=== PATIENT | female | born 1985 | race Caucasian/White ===

== ENCOUNTER 2024-05-20 17:55 | Inpatient (IN) ==
[2024-05-20] MEDS ORDERED: Lidocaine 1% VIAL 10 MG/ML 30 ML VIAL INJ PRN (19:34)
[2024-05-20] MEDS: Lactated Ringers 1000 ml BAG 1,000 ML IV ONE (19:58)
[2024-05-20] MEDS: Dinoprostone 10 MG VAG.SUPP VAGINAL ONE (20:10)
[2024-05-20 20:11] LABS: ABS Basophils 0.1 10^3/uL (0.0-0.1); ABS Eosinophils 0.1 10^3/uL (0.0-0.5); ABS Lymphocytes 2.3 10^3/uL (1.0-4.8); ABS Monocytes 0.8 10^3/uL (0.0-0.9); ABS Neutrophils 7.5 10^3/uL (1.5-7.6); ABS Nucleated RBC 0.01 10^3/ul; Hematocrit 38.6 % (35-45); Hemoglobin 13.4 g/dL (11.5-14.3); Lymphocyte % 21.7 %; Mean Corpuscular Hemoglobin 32.5 pg (27-33); Mean Corpuscular Hgb Conc 34.7 g/dL (31-36); Mean Corpuscular Volume 93.4 fL (80-97); Mean Platelet Volume 7.7 fL (7.5-11.2); Nucleated Red Blood Cells % 0.1 %/100WBC (0.0-0.8); Platelet Count 252 10^3/uL (150-450); Red Blood Count 4.13 10^6/uL (3.63-4.92); Red Cell Distribution Width 13.2 % (12-17); White Blood Count 10.8 10^3/uL (3.8-11.8)
[2024-05-20 20:31] LABS: Urine Benzodiazepine Screen None Detected (None Detect); Urine Cannabinoids Screen None Detected (None Detect); Urine Opiates Screen None Detected (None Detect)
[2024-05-21] MEDS: Penicillin G Potassium IV 5,000,000 UNITS in NS 0.9% 100 ml BAG 100 ML IVPB ONE (00:33)
[2024-05-21] MEDS ORDERED: Prochlorperazine 5 mg/ml 2 ml VIAL (10 mg) IV PRN (01:47)
[2024-05-21] MEDS: Lactated Ringers 1000 ml BAG 1,000 ML IV SCH ×3 (02:01→21:51)
[2024-05-21] MEDS: Nalbuphine 10 MG/ML 1 ML VIAL IV PRN (02:01)
[2024-05-21] MEDS: OBEPIDURAL (200 ML) 200 ML EPIDURAL ONE (04:06)
[2024-05-21] MEDS ORDERED: fentaNYL 100 mcg/2 ml 50 MCG/ML VIAL IV PRN (04:13)
[2024-05-21] MEDS ORDERED: Metoclopramide 5 MG/ML VIAL (10 mg) IV PRN (04:13)
[2024-05-21] MEDS ORDERED: Ondansetron 4 mg VIAL 2 MG/ML 2 ml VIAL IV PRN ×2 (04:13→17:28)
[2024-05-21] MEDS ORDERED: Naloxone 0.4 mg VIAL 0.4 mg/ml 1 ml VIAL IV PRN (04:13)
[2024-05-21] MEDS: Penicillin G Potassium IV 3,000,000 UNITS in NS 0.9% 100 ml BAG 100 ML IVPB SCH (04:23)
[2024-05-21] MEDS: Lidocaine 1.5% EPI 1:200,000 30 ML SDV ONE (04:48)
[2024-05-21] MEDS ORDERED: NS 0.45% 1000 ml BAG 1,000 ML IV SCH (05:00)
[2024-05-21 05:34] LABS: Urine Appearance Clear; Urine Bacteria Absent /HPF (Absent); Urine Bilirubin Negative (Negative); Urine Blood 2+ (Negative); Urine Color Colorless; Urine Glucose Negative (Negative); Urine Ketones Negative (Negative); Urine Nitrite Negative (Negative); Urine Protein Negative (Negative); Urine Red Blood Cell 3+(>10/hpf) /HPF (0-Trace); Urine Specific Gravity 1.012 (1.002-1.030); Urine Urobilinogen Negative (Negative); Urine White Blood Cell Trace(0-5/hpf) /HPF (0-Trace)
[2024-05-21] MEDS ORDERED: Phenylephrine 40 mcg/mL 10mL (400mcg) SYRINGE IV PUSH PRN ×2 (07:33)
[2024-05-21] MEDS: Oxytocin in LR 20,000 MILLI.UNIT/1,000 ML BAG IV SCH ×3 (08:09→21:50)
[2024-05-21] MEDS ORDERED: Lidocaine 2% PF 10 ML AMP (OR) ONE (16:14)
[2024-05-21] MEDS: Sodium Citrate/Citric Acid LIQ 15 ML UDC PO PRN (16:16)
[2024-05-21] MEDS: ceFAZolin 2 GM PREMIX 2 GM/50 ML BAG IVPB ONE (16:17)
[2024-05-21] MEDS ORDERED: Oxytocin 10 UNITS/ML 1 ML VIAL ONE ×2 (16:59→17:35)
[2024-05-21] MEDS ORDERED: Morphine PF AMP (0.5MG/ML) 5 MG/10 ML AMP ONE (17:04)
[2024-05-21] MEDS ORDERED: Naloxone 0.4 mg VIAL 0.4 mg/ml 1 ml VIAL IV PUSH PRN (17:28)
[2024-05-21] MEDS ORDERED: Acetaminophen IV 1 GM/100ML 1,000 MG/100 ML BAG IV ONE (17:36)
[2024-05-21] MEDS ORDERED: Ondansetron 4 mg VIAL 2 MG/ML 2 ml VIAL ONE (17:37)
[2024-05-21] MEDS ORDERED: Dexamethasone IV 4 MG/ML VIAL 1 ml VIAL ONE (17:37)
[2024-05-21] MEDS ORDERED: Glycerin ADULT 2.4 gm SUPP PR PRN (18:14)
[2024-05-21] MEDS ORDERED: Dibucaine 1% OINT 28.35 GM TUBE PR PRN (18:14)
[2024-05-21] MEDS ORDERED: Witch Hazel PAD JAR TOPICAL PRN (18:14)
[2024-05-21] MEDS ORDERED: Lactated Ringers 1000 ml BAG 1,000 ML IV SCH (19:00)
[2024-05-21] MEDS: OBEPIDURAL (200 ML) 200 ML EPIDURAL SCH (21:14)
[2024-05-21] MEDS: Azithromycin 500 mg/250 ml NS 500 MG/250 ML BAG IVPB ONE (21:50)
[2024-05-21] MEDS: Acetaminophen IV 1 GM/100ML 1,000 MG/100 ML BAG IV ONE (21:51)
[2024-05-21] MEDS: Lactated Ringers 1000 ml BAG 1,000 ML IV ONE (21:51)
[2024-05-21] MEDS: Buffered Lidocaine 1% SYRIN 1 ml INTRADERM ONE ×2 (21:52→21:54)
[2024-05-21] MEDS: ceFAZolin VIAL 2 GM in NS 0.9% 100 ml BAG 100 ML IVPB ONE (21:52)
[2024-05-21] MEDS: Phenylephrine 40 mcg/mL 10mL (400mcg) SYRINGE ONE (21:53)
[2024-05-21] MEDS: Scopolamine 1 mg/72hr PATCH TRANSDERM ONE (21:54)
[2024-05-22] MEDS: Acetaminophen IV 1 GM/100ML 1,000 MG/100 ML BAG IV PRN (02:36)
[2024-05-22 06:46] LABS: ABS Eosinophils 0.1 10^3/uL (0.0-0.5); ABS Lymphocytes 2.2 10^3/uL (1.0-4.8); ABS Monocytes 1.4 10^3/uL (0.0-0.9); ABS Neutrophils 15.7 10^3/uL (1.5-7.6); ABS Nucleated RBC 0.01 10^3/ul; Eosinophil % 0.5 %; Hematocrit 28.2 % (35-45); Hemoglobin 9.9 g/dL (11.5-14.3); Lymphocyte % 11.5 %; Mean Corpuscular Hemoglobin 33.1 pg (27-33); Mean Corpuscular Volume 94.4 fL (80-97); Mean Platelet Volume 7.5 fL (7.5-11.2); Nucleated Red Blood Cells % 0.1 %/100WBC (0.0-0.8); Platelet Count 204 10^3/uL (150-450); Red Blood Count 2.99 10^6/uL (3.63-4.92); Red Cell Distribution Width 13.2 % (12-17); White Blood Count 19.5 10^3/uL (3.8-11.8)
[2024-05-22] MEDS: Petroleum Jelly 1.75 Oz (small jar) TOPICAL ONE (19:25)
[2024-05-23 10:18] VITALS: BP 116/62
[2024-05-23] MEDS: Influenza Vaccine *TRI* 2024-25* 0.5 ML SYRINGE IM ONE (16:33)
== END 2024-05-23 16:45 | disposition home or self-care (01) | DRG 540 ==
LOC: MCHOBOUT 17:55 → MCHOB 19:19
PROVIDERS: ATTEND Obstetrics & Gynecology